=== PATIENT | male | born 1990 | race Caucasian/White ===

== ENCOUNTER 2019-07-09 17:38 | Emergency (ER) | payer SELFPAY ==
--- NOTE | 2019-07-09 17:43 | UC ---
FLU HPI - HPI Summary HPI Summary: 29 yo male presents with ?alcohol withdrawal. He tells me that for the last 2 years he has been drinking about 4-6 22oz beers of 8% alcohol a day - usually in the evening. Over the last week he also admits to usage of mushrooms and marijuana. He usually smokes 1.5ppd of cigarettes, but has stopped those today as well. His last alcoholic beverage was around 0200 this am. Since that time he has been feeling shaky, anxiety, slightly nauseous, "off", and has trouble focusing. Symptoms are getting stronger by the hour. He has tried to quit "cold turkey" from alcohol before, but symptoms have never been this bad. He has no hx of seizures. Has never done inpatient treatment for alcohol. Currently denies headache, SOB, chest pain, abdominal pain, vomiting, dysuia, or pain. - History of Current Complaint Stated Complaint: SHAKING, SWEATING Time Seen by Provider: 07/09/19 17:42 Hx Obtained From: Patient Onset/Duration: Gradual Onset Severity Currently: Mild Severity Initially: Moderate - Allergy/Home Medications Allergies/Adverse Reactions: Allergies Allergy/AdvReac Type Severity Reaction Status Date / Time morphine Allergy Severe Hives Verified 07/09/19 18:01 Home Medications: Home Medications NK [No Home Medications Reported] 07/09/19 [History Confirmed 07/09/19] PMH/Surg Hx/FS Hx/Imm Hx Cardiovascular History: Hypertension - Surgical History Surgical History: Yes Surgery Procedure, Year, and Place: left inner elbow growth plate - Family History Known Family History: Positive: Hypertension - Social History Occupation: Employed Full-time Lives: With Family Alcohol Use: Daily Substance Use Type: Cocaine - past, Heroin - past, Marijuana, Synthetic Drugs, Other - Shrooms Smoking Status (MU): Current Every Day Smoker Review of Systems All Other Systems Reviewed And Are Negative: No Constitutional: Positive: Negative Skin: Positive: Negative Eyes: Positive: Negative ENT: Positive: Negative Respiratory: Positive: Negative Cardiovascular: Positive: Negative Gastrointestinal: Positive: Nausea Genitourinary: Positive: Negative Motor: Positive: Negative Neurovascular: Positive: Negative Musculoskeletal: Positive: Negative Neurological: Positive: Negative Psychological: Positive: Anxious Physical Exam - Summary Physical Exam Summary: GENERAL: NAD. SKIN: No rashes, sores, lesions, or open wounds. NECK: Supple. Nontender. No lymphadenopathy. CHEST: CTAB. No r/r/w. No accessory muscle use. Breathing comfortably and in no distress. CV: RRR. Pulses intact. Cap refill <2seconds ABDOMEN: Soft. NTTP. No distention or guarding. No organomegaly. No CVA tenderness. Bowel sounds present NEURO: Alert. PSYCH: Mildly anxious. Vital Signs: Vital Signs: Temp Pulse Resp BP Pulse Ox 99.1 F 58 16 156/100 100 07/09/19 17:46 07/09/19 17:46 07/09/19 18:30 07/09/19 17:46 07/09/19 17:46 Vital Signs Reviewed: Yes Flu Course/Dx - Course Course Of Treatment: CIWA score 18 0/3/0/5/2/2/0/2/4/0 iSTOP Reference #: [id number] Overall, he is well appearing except mild to moderately anxious with some mild tremors. He is afebrile, not tachy, no sweating, no vomiting, no seizures or visual or auditory hallucinations. I recommended to pt and his girlfriend with him today to be further evaluated in the ED for labwork, monitoring, and possible mental health eval or social work consult for outpatient therapy. He was agreeable to this. He was given 1mg Ativan in the clinic and his girlfriend will drive him to the ED now. - Differential Dx/Diagnosis Provider Diagnosis: Alcohol withdrawal Discharge ED - Sign-Out/Discharge Documenting (check all that apply): Patient Departure All imaging exams completed and their final reports reviewed: No Studies - Discharge Plan Condition: Stable Disposition: HOME-RECOMMEND TO ED Referrals: No Primary Care Phys,NOPCP [Primary Care Provider] - Additional Instructions: Please go to the ER for further evaluation of your symptoms --- I have called one of the providers in the ER to let them know you will be coming - Billing Disposition and Condition Condition: STABLE Disposition: Home-Recommend to ED
[2019-07-09 18:00] VITALS: BP 156/100
[2019-07-09] MEDS ORDERED: LORazepam TAB(*) 1 MG PO ONE (18:23)
== END 2019-07-09 18:28 | disposition home health service (06) ==
LOC: UCEAST 17:38
DX: F10.239 Alcohol dependence with withdrawal, unspecified (principal); R11.0 Nausea; I10 Essential (primary) hypertension; Z88.5 Allergy status to narcotic agent; F17.210 Nicotine dependence, cigarettes, uncomplicated
CPT/HCPCS: 99202; A9270-GY; G0463

== ENCOUNTER 2019-07-09 20:30 | Emergency (ER) | payer OTHER ==
[2019-07-09] MEDS ORDERED: Thiamine INJ* 100 MG, Folic Acid IV* 1 MG, Multiple Vitamin IV ADULT* 10 ML in NS 0.9% ... IV ONE (21:13)
[2019-07-09] MEDS ORDERED: chlordiazePOXIDE CAP* 25 MG PO ONE ×2 (21:15→21:18)
--- NOTE | 2019-07-09 21:20 | ED ---
Substance Abuse/Use - HPI Summary HPI Summary: 29 year old male presents with alcohol withdrawal today. He states he has been drinking for past 2 years 4 22 ounce malt liquors a day. He states that he smokes cigarettes which he quit today. He also smoker marijuana occasionally. His last alcohol drink was at 4 AM. He's been feeling anxious and agitated. Denies any vomiting. He was nauseous but not anymore. He states he did have 1 episode of visual hallucinations. he has tried quitting cold turkey before. Denies a history of seizures. never required inpatient treatment for alcohol. Denies any headache. No shortness breath or chest pain. No bowel pain. He was given 1 mg Ativan at urgent care and is feeling a lot less anxious and agitated. - History Of Current Complaint Chief Complaint: EDGeneral Stated Complaint: ALCOHOL WITHDRAWL PER PT Time Seen by Provider: 07/09/19 21:06 - Allergies/Home Medications Allergies/Adverse Reactions: Allergies Allergy/AdvReac Type Severity Reaction Status Date / Time morphine Allergy Severe Hives Verified 07/09/19 20:35 PMH/Surg Hx/FS Hx/Imm Hx Endocrine/Hematology History: Denies: Hx Diabetes, Hx Thyroid Disease Cardiovascular History: Denies: Hx Hypertension Respiratory History: Denies: Hx Asthma, Hx Chronic Obstructive Pulmonary Disease (COPD) GI History: Denies: Hx Ulcer - Surgical History Surgery Procedure, Year, and Place: left inner elbow growth plate Infectious Disease History: No Infectious Disease History: Denies: Hx Hepatitis, Hx Human Immunodeficiency Virus (HIV), Traveled Outside the [place] in Last 30 Days - Family History Known Family History: Positive: Hypertension - Social History Alcohol Use: Daily Substance Use Type: Reports: Marijuana Smoking Status (MU): Current Every Day Smoker Review of Systems Negative: Fever Negative: Chest Pain Negative: Shortness Of Breath Negative: Nausea Positive: Headache Positive: Anxious All Other Systems Reviewed And Are Negative: Yes Physical Exam Triage Information Reviewed: Yes Vital Signs On Initial Exam: Initial Vitals Temp Pulse Resp BP Pulse Ox 96.9 F 76 18 146/85 99 07/09/19 20:32 07/09/19 20:32 07/09/19 20:32 07/09/19 20:32 07/09/19 20:32 Vital Signs Reviewed: Yes Appearance: Positive: Well-Appearing Skin: Positive: Warm, Dry Head/Face: Positive: Normal Head/Face Inspection Eyes: Positive: Normal, Conjunctiva Clear ENT: Positive: Pharynx normal Respiratory/Lung Sounds: Positive: Clear to Auscultation, Breath Sounds Present Cardiovascular: Positive: Normal, RRR Abdomen Description: Positive: Nontender, Soft Bowel Sounds: Positive: Present Musculoskeletal: Positive: Normal Neurological: Positive: Normal, Other - mild tremor noted Psychiatric: Positive: Anxious - slight Procedures - Sedation Patient Received Moderate/Deep Sedation with Procedure: No Diagnostics - Vital Signs Vital Signs Temp Pulse Resp BP Pulse Ox 07/09/19 20:32 96.9 F 76 18 146/85 99 - Laboratory Result Diagrams: 07/09/19 21:22 07/09/19 21:22 Lab Statement: Any lab studies that have been ordered have been reviewed, and results considered in the medical decision making process. Re-Evaluation - Re-Evaluation First Eval Re-Evaluation Time: 21:20 Comment: CIWA of 10 Second Eval Re-Evaluation Time: 23:01 Change: Improved Comment: feeling better Third Eval Re-Evaluation Time: 23:47 Comment: patient a sleep Course/Dx - Course Course Of Treatment: 29 year old male presents with alcohol withdrawal today. He states he has been drinking for past 2 years 4 22 ounce malt liquors a day. He states that he smokes cigarettes which he quit today. He also smoker marijuana occasionally. His last alcohol drink was at 4 AM. He's been feeling anxious and agitated. Denies any vomiting. He was nauseous but not anymore. He states he did have 1 episode of visual hallucinations. he has tried quitting cold turkey before. Denies a history of seizures. never required inpatient treatment for alcohol. Denies any headache. No shortness breath or chest pain. No bowel pain. He was given 1 mg Ativan at urgent care and is feeling a lot less anxious and agitated. On exam has a slight tremor noted. Otherwise normal physical exam. ciaw of 10 so mild withdrawal at this point. We 'll give a dose of Librium. gave banana bag. Labs show no acute abnormlities. gave resources in community. monitor here and symptoms did not get worst. will prescribe librium. told follow up with [facility]. patient also complainging of chronic knee pain so gave referral for ortho. patient understand and agrees with plan. - Diagnoses Differential Diagnosis/HQI/PQRI: Positive: Alcohol Abuse, Alcohol Withdrawal, Metabolic Disorder Provider Diagnoses: Alcohol withdrawal Discharge ED - Sign-Out/Discharge Documenting (check all that apply): Patient Departure - Discharge Plan Condition: Good Disposition: HOME Patient Education Materials: Alcohol Withdrawal (ED) Referrals: [facility] [Outside] Mae Inman MD [Medical Doctor] - Additional Instructions: follow up with open [facility] center: [phone] take chlordiazepoxide two tablets first day every 6-12 hours day 2: 1 tablet every 6 hours day 3: 1 tablet twice a day day 4: 1 tablet at night a referral was given for ortho Return to ED if develop any new or worsening symptoms - Billing Disposition and Condition Condition: GOOD Disposition: Home
[2019-07-09] MEDS ORDERED: Nicotine* 4MG (FRUIT FLAVOR) GUM PO ONE (21:21)
[2019-07-09 21:32] LABS: ABS Eosinophils 0.1 10^3/ul (0-0.6); ABS Lymphocytes 1.6 10^3/ul (1.0-4.8); ABS Monocytes 0.9 10^3/ul (0-0.8); ABS Neutrophils 4.7 10^3/ul (1.5-7.7); Eosinophil % 1.6 %; Hematocrit 42 % (42-52); Hemoglobin 14.6 g/dL (14.0-18.0); Lymphocyte % 22.2 %; Mean Corpuscular HGB Conc 35 g/dL (31-36); Mean Corpuscular Hemoglobin 35 pg (27-31); Mean Corpuscular Volume 98 fL (80-94); Platelet Count 237 10^3/uL (150-450); Red Blood Count 4.24 10^6 /uL (4.18-5.48); Red Cell Distribution Width 13 % (10-15); White Blood Count 7.4 10^3/uL (3.5-10.8)
[2019-07-09 21:51] LABS: ALT 16 U/L (7-52); AST 26 U/L (13-39); Albumin 4.3 g/dL (3.2-5.2); Albumin/Globulin Ratio 1.7 (1-3); Alkaline Phosphatase 55 U/L (34-104); Anion Gap 5 mmol/L (2-11); BUN/Creatinine Ratio 18.5 (8-20); Blood Urea Nitrogen 15 mg/dL (6-24); C Reactive Protein < 1.00 mg/L (<8.01); CO2 Carbon Dioxide 29 mmol/L (22-32); Calcium 9.4 mg/dL (8.6-10.3); Chloride 103 mmol/L (101-111); EGFR African American 135.4 (>60); EGFR Non-African American 111.9 (>60); Globulin 2.5 g/dL (2-4); Glucose 96 mg/dL (70-100); Sodium 137 mmol/L (135-145); Total Protein 6.8 g/dL (6.4-8.9)
[2019-07-09 22:11] LABS: Alcohol < 10 mg/dL (<10)
[2019-07-09 23:02] LABS: Urine Benzodiazepine Screen None Detected (None Detect); Urine Opiates Screen None Detected (None Detect)
[2019-07-10 00:35] VITALS: BP 126/75
== END 2019-07-10 00:33 | disposition home or self-care (01) ==
LOC: ED 20:30
DX: F10.239 Alcohol dependence with withdrawal, unspecified (principal); R51 Headache; F41.9 Anxiety disorder, unspecified; F17.210 Nicotine dependence, cigarettes, uncomplicated; Z79.899 Other long term (current) drug therapy
CPT/HCPCS: 36415; 80053; 80307; 80320; 83605; 83735; 85025; 86140; 96365; 96375; 99283; A9270-GY; G0480; J3411